=== PATIENT | female | born 1975 | race Caucasian/White ===

== ENCOUNTER 2018-02-25 23:10 | Emergency (ER) | payer MEDICARE, BC, OTHER, MEDICAID ==
[2018-02-26] MEDS ORDERED: LIDOCAINE 1% INJ-PF (10 MG/ML) 30 ML SDV INJ ONE (00:40)
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
--- NOTE | 2018-02-26 01:54 | RADIOLOGY REPORT (SQ) ---
EXAM DESCRIPTION: XR FOOT 3 OR MORE VIEWS COMPLETED DATE/TME: 02/26/2018 00:38 CLINICAL HISTORY: 42 years, Female, jammed foot COMPARISON: None. NUMBER OF VIEWS: 4 LIMITATIONS: None. FINDINGS: Bone demineralization, mild osteoarthritis of the forefoot. Swelling. IMPRESSION: Left foot swelling.
[2018-02-26] MEDS ORDERED: DIPH/PERTUSS(ACELL)/TETANUS VAC/PF 0.5 ML SYR (>=10YO) IM ONE (01:56)
[2018-02-26 02:52] VITALS: BP 74/45
== END 2018-02-26 02:46 | disposition home or self-care (01) ==
LOC: ER 23:10
PROC: 0HQNXZZ Repair Left Foot Skin, External Approach (ICD-10-PCS; principal; 2018-02-25)
DX: S99.922A Unspecified injury of left foot, initial encounter (principal); W22.09XA Striking against other stationary object, initial encounter; Y92.000 Kitchen of unspecified non-institutional (private) residence as the place of occurrence of the external cause; Z88.3 Allergy status to other anti-infective agents; Z98.1 Arthrodesis status; Z23 Encounter for immunization
CPT/HCPCS: 99283; 90471; 73630; 90715; 12001; J3490